=== PATIENT | female | born 1990 | race Caucasian/White ===

== ENCOUNTER 2018-05-11 13:46 | Inpatient (IN) | payer MEDICAID ==
[2018-05-11 16:27] LABS: ADD MAN DIFF? NO
[2018-05-11 16:29] LABS: BASOPHILS % 0.2 % (0.0-2.0); EOSINOPHILS # 0.1 10^3/ul (0.0-0.5); EOSINOPHILS % 0.8 % (0.0-7.0); HEMATOCRIT 38.2 % (37.0-47.0); HEMOGLOBIN 12.9 g/dl (12.0-16.0); LYMPHOCYTES # 1.7 10^3/ul (0.8-2.9); LYMPHOCYTES % 18.2 % (15.0-51.0); MEAN CORPUSCULAR HEMOGLOBIN 33.2 pg (29.0-33.0); MEAN CORPUSCULAR HGB CONC 33.8 g/dl (32.0-37.0); MEAN CORPUSCULAR VOLUME 98.2 fl (82.0-101.0); MONOCYTE # 0.5 10^3/ul (0.3-0.9); MONOCYTES % 5.7 % (0.0-11.0); NEUTROPHIL # 6.9 10^3/ul (1.6-7.5); NEUTROPHILS % 74.9 % (39.0-77.0); PLATELET COUNT 224 10^3/UL (140-415); RED BLOOD COUNT 3.89 10^6/ul (4.20-5.40); RED CELL DISTRIBUTION WIDTH 13.2 % (11.5-14.5)
[2018-05-11 16:29] LABS: WHITE BLOOD COUNT 9.1 10^3/ul (4.8-10.8)
[2018-05-11] MEDS ORDERED: BUTORPHANOL 2 MG INJ IV (16:30)
[2018-05-11] MEDS ORDERED: OXYTOCIN 30 UNITS/LR 500 ML IV ×2 (16:30→21:30)
[2018-05-11] MEDS ORDERED: CARBOPROST 250 MCG INJ IM ×2 (16:30→21:30)
[2018-05-11] MEDS ORDERED: LIDOCAINE 1% (MPF) 30 ML INJ INJ (16:30)
[2018-05-11] MEDS ORDERED: METHYLERGONOVINE 0.2 MG INJ IM ×2 (16:30→21:30)
[2018-05-11] MEDS ORDERED: MISOPROSTOL 200 MCG TAB PR ×2 (16:30→21:30)
[2018-05-11 16:32] LABS: INR 1.08; PROTIME 14.1 Sec (11.9-14.9); PT RATIO 1.1
[2018-05-11 16:33] LABS: PARTIAL THROMBOPLASTIN TIME 27.5 Sec (23.0-35.0)
[2018-05-11] MEDS: LACTATED RINGER'S 1,000 ML IV* ×2 (16:44→21:14)
[2018-05-11 17:07] LABS: HEPATITIS B SURFACE ANTIGEN NEGATIVE (NEGATIVE)
[2018-05-11] MEDS: OXYTOCIN 30 UNITS/LR 500 ML IV ×2 (17:21→17:29)
[2018-05-11] MEDS: MINERAL OIL LIGHT 10 ML VIAL TOP (17:24)
[2018-05-11] MEDS: LIDOCAINE 0.5% (SDV) 50 ML INJ INFIL (17:24)
[2018-05-11] MEDS: IBUPROFEN 600 MG TAB PO ×2 (17:47→19:04)
[2018-05-11] MEDS ORDERED: BENZOCAINE 20% 56 ML SPRAY TOP (21:30)
[2018-05-11] MEDS ORDERED: DIBUCAINE 1% 30 GM OINT PR (21:30)
[2018-05-11] MEDS ORDERED: ZOLPIDEM 5 MG TAB PO (21:30)
[2018-05-11] MEDS ORDERED: HYDROCODONE/APAP (5/325) TAB PO ×2 (21:30)
[2018-05-11] MEDS ORDERED: LANOLIN 7 GM TUBE TOP (21:30)
[2018-05-11] MEDS ORDERED: WITCH HAZEL/GLYCERIN PAD PR (21:30)
[2018-05-11 22:53] LABS: RAPID PLASMA REAGIN NONREACTIVE (NR)
[2018-05-12] MEDS: IBUPROFEN 600 MG TAB PO ×5 (00:38→23:41)
[2018-05-12] MEDS: LACTATED RINGER'S 1,000 ML IV* ×2 (05:04→13:04)
[2018-05-12] MEDS: SENNA/DOCUSATE NA (8.6MG/50MG) TAB PO ×2 (09:00→21:06)
[2018-05-12] MEDS: MAGNESIUM HYDROXIDE 30ML CUP PO ×2 (09:00→21:06)
[2018-05-12 16:34] LABS: ADD MAN DIFF? NO
[2018-05-12 16:36] LABS: BASOPHILS % 0.3 % (0.0-2.0); EOSINOPHILS # 0.1 10^3/ul (0.0-0.5); EOSINOPHILS % 0.9 % (0.0-7.0); HEMATOCRIT 35.8 % (37.0-47.0); HEMOGLOBIN 12.1 g/dl (12.0-16.0); LYMPHOCYTES # 2.1 10^3/ul (0.8-2.9); LYMPHOCYTES % 17.6 % (15.0-51.0); MEAN CORPUSCULAR HEMOGLOBIN 33.2 pg (29.0-33.0); MEAN CORPUSCULAR HGB CONC 33.8 g/dl (32.0-37.0); MEAN CORPUSCULAR VOLUME 98.4 fl (82.0-101.0); MEAN PLATELET VOLUME 10.7 fl (7.4-10.4); MONOCYTE # 0.5 10^3/ul (0.3-0.9); MONOCYTES % 4.4 % (0.0-11.0); NEUTROPHILS % 76.4 % (39.0-77.0); PLATELET COUNT 219 10^3/UL (140-415); RED BLOOD COUNT 3.64 10^6/ul (4.20-5.40); RED CELL DISTRIBUTION WIDTH 13.3 % (11.5-14.5)
[2018-05-12 16:36] LABS: WHITE BLOOD COUNT 11.7 10^3/ul (4.8-10.8)
[2018-05-13] MEDS: IBUPROFEN 600 MG TAB PO (05:43)
[2018-05-13] MEDS: MEASLES,MUMPS,RUBELLA VACCINE INJ SC* (09:00)
[2018-05-13] MEDS: SENNA/DOCUSATE NA (8.6MG/50MG) TAB PO (09:00)
[2018-05-13] MEDS: MAGNESIUM HYDROXIDE 30ML CUP PO (09:00)
[2018-05-13] MEDS: DIPHTH/TET/ACEL PERTUSS (ADULT) 0.5 ML VIAL IM* (09:00)
[2018-05-13] MEDS: VARICELLA VACCINE LIVE/PF 1,350 UNIT/0.5 ML ML SC* (09:00)
[2018-05-13] MEDS: LACTATED RINGER'S 1,000 ML IV* (10:12)
== END 2018-05-13 13:30 | disposition home or self-care (01) | DRG 807 ==
LOC: OBT 13:46 → L-D 13:46 → OBT 15:15 → L-D 15:15 → PP1 20:58
PROVIDERS: Obstetrics & Gynecology
PROC: 10E0XZZ Delivery of Products of Conception, External Approach (ICD-10-PCS; principal; 2018-05-11)
DX: O80 Encounter for full-term uncomplicated delivery (principal); Z37.0 Single live birth; Z3A.39 39 weeks gestation of pregnancy
CPT/HCPCS: 85025; 85610; 85730; 86592; 86850; 86900; 86901; 87340; 99464